=== PATIENT | male | born 1985 | race Caucasian/White ===

== ENCOUNTER 2023-03-05 09:03 | Outpatient (OUT) | payer BC, SELFPAY ==
--- NOTE | 2023-03-05 09:05 | VEIN_ITS ---
The [address] [address] Patient Name: HAMIDA MUNIZ MRN: [id number] date: 1985 Sex: M Assigned Patient Location: Current Patient Location: Accession/Order Number: [id number] Exam Date: 03/05/2023 09:10 Report Date: 03/05/2023 10:56 At the request of: KEMAR WILLIS Procedure: VC Endovenous Ablation 1VeinLT EXAMINATION: VC Endovenous Ablation 1VeinLT HISTORY: I83.813 Pain due to varicose veins of bilateral leg veins The risks and benefits of the procedure had been previously discussed, and were rediscussed at length. Informed written consent was obtained. Truman Gan RN and Yuridia Rod RDMS, RVT assisted. Time out procedure was performed. The left lower extremity was prepared and draped in the usual sterile fashion to allow knee flexion in the sterile field. Duplex ultrasound probe was draped in a sterile cover, sterile transmission gel was used. Venous mapping was performed with the areas of dilation and large tributaries marked. The total length was 70 cm from the entry 3 cm above the medial malleolus to 3 cm below the saphenofemoral junction. The diameter of the greater saphenous vein ranged from 10.7 mm. A 30 gauge needle and 1% buffered lidocaine was used to anesthetize the entry site. A 4 mm incision was made with a scalpel and the saphenous vein was entered percutaneously under direct ultrasound guidance with a micropuncture set, a single stick was successful in gaining access. A micro-guide wire was inserted and the needle removed. A micro-set including a dilator was inserted over the microwire and the needle and dilator were removed. A guide wire was inserted through the micro-set and guided through the saphenous vein to the saphenofemoral junction. The dilator was removed and an introducer sheath was inserted over the wire until the end of the sheath entered the saphenofemoral junction. The dilator and wire were removed and the 600 micron fiber was introduced and placed and positioned so that it extended beyond the sheath and was 3 cm distal to the saphenofemoral femoral junction. Final position of the fiber was determined by ultrasound guidance and duplex imaging. Tumescent anesthetic was delivered by ultrasound guidance. 375 cc of fluid was delivered along the entire course of the saphenous vein. The solution consisted of 1000 cc of normal saline with 40 mL of 1% lidocaine and 20 mL of sodium bicarbonate. A final positioning check was made. The energy source was turned on by means of the foot pedal and the fiber and sheath were withdrawn. The total number of Joules delivered was 3785. The laser was active for 473seconds under continuous pulse, average laser use of 8 J. Laser start time 10:15 AM, 03/05/2023. Laser stop time 10:25 AM, 03/05/2023. A duplex ultrasound revealed compressibility and flow at the saphenofemoral junction immediately after the procedure. Hemostasis at the access site was achieved. The skin incision of the saphenous vein was closed with a 4 x 4. A compression stocking was applied. Postop instructions were given. A follow up appointment was recommended and scheduled. The patient tolerated the procedure well. Electronically authenticated by: MADAN RASHEED Date: 03/05/2023 10:56
[2023-03-05] MEDS: LIDOCAINE HCL 10 ML, SODIUM BICARBONATE 1 MEQ INJ (13:36)
[2023-03-05] MEDS: 0.9 % SODIUM CHLORIDE 500 ML, LIDOCAINE HCL 20 ML, SODIUM BICARBONATE 10 MEQ INJ (13:37)
== END 2023-03-05 09:04 | disposition home or self-care (01) ==
LOC: VC 09:03
PROVIDERS: PCP Radiology Diagnostic Radiology; Visit Provider Radiology Diagnostic Radiology
DX: I83.813 Varicose veins of bilateral lower extremities with pain (principal)
CPT/HCPCS: 36478

== ENCOUNTER 2023-03-12 08:04 | Outpatient (OUT) | payer BC, SELFPAY ==
--- NOTE | 2023-03-12 08:06 | VEIN_ITS ---
Patient: HAMIDA MUNIZ Exam Date: 03/12/2023 : 1985 Gender:M Ordering : DR KEMAR WILLIS M.D. Admission #: [id number] Family : Order #: [id number] CLICK HERE TO VIEW EXAM RADIOLOGY REPORT PROCEDURE: VC EXT VENOUS LT LIMITED COMPARISON: None. INDICATIONS: I80.02 Phlebitis of superficial veins of left lower extremity TECHNIQUE: Lower extremity bishop scale and Duplex Doppler evaluation of the deep venous system from the inguinal ligament through the calf veins. FINDINGS: REGION: Left lower extremity. THROMBI: Negative for DVT. Heat induced thrombus in left GSV 2.1 cm from SFJ and extends to mid calf. Associated varicosity also partially thrombosed in mid thigh. COMPRESSIBILITY: Non-compressible segments. FLOW: Areas of no flow. OTHER: Multiple varicosities remain. CONCLUSION: Successful post ablation occlusion left great saphenous vein. Dictated by: Bg Villar M.D. on 03/12/2023 at 08:37 Approved by: Bg Villra M.D. on 03/12/2023 at 08:38
--- NOTE | 2023-03-12 08:06 | VEIN_ITS ---
Patient: HAMIDA MUNIZ Exam Date: 03/12/2023 : 1985 Gender:M Ordering : DR KEMAR WILLIS M.D. Admission #: [id number] Family : Order #: [id number] CLICK HERE TO VIEW EXAM RADIOLOGY REPORT PROCEDURE: FACILITY EST L[facility]D VEIN CENTER - OFFICE VISIT FOLLOW UP COMPARISON: None. PROGRESS NOTES: The patient reports improvement in leg symptoms. There has been interval reduction in varicosities. The patient has followed our recommendations to walk 20-30 minutes once or twice per day since the procedure. Physical exam demonstrates decrease in varicosities of the leg. Persistent varicosities are identified along the legs bilaterally. Review of the ultrasound performed the same day demonstrates occlusive thrombus extending throughout the treated vein(s), see separate report, consistent with a successful ablation. No thrombus extending into or beyond the saphenofemoral junction. The patient expressed a desire to proceed with treatment of remaining incompetent varicosities. The patient was informed that treatment was a process and would require several procedures/sessions. VEIN/ Facility EST LMTD IMPRESSION: 1. Successful ablation of the left great saphenous vein(s). 2. Persistent incompetent, dilated varicose veins and bilateral lower extremity symptoms. PLAN: Endovenous laser ablation of right great saphenous vein. Nurse notes, history and physical were reviewed and confirmed, see attached forms. The nurse was present throughout the physical exam and consultation Dictated by: Bg Villar M.D. on 03/12/2023 at 08:38 Approved by: Bg Villar M.D. on 03/12/2023 at 08:39
== END 2023-03-12 08:05 | disposition home or self-care (01) ==
LOC: VC 08:05
PROVIDERS: PCP Radiology Diagnostic Radiology; Visit Provider Radiology Diagnostic Radiology
DX: I80.02 Phlebitis and thrombophlebitis of superficial vessels of left lower extremity (principal)
CPT/HCPCS: 93971; G0463

== ENCOUNTER 2023-07-17 07:23 | Outpatient (OUT) | payer BC, SELFPAY ==
--- NOTE | 2023-07-17 07:56 | VEIN_ITS ---
[address] [address] Patient Name: HAMIDA MUNIZ MRN: [id number] date: 1985 Sex: M Assigned Patient Location: Current Patient Location: Accession/Order Number: [id number] Exam Date: 07/17/2023 07:40 Report Date: 07/17/2023 10:42 At the request of: KEMAR WILLIS Procedure: VC Endovenous Ablation 1VeinLT EXAMINATION: VC Endovenous Ablation 1VeinLT anterior accessory saphenous vein HISTORY: Pain due to varicose veins of bilateral legs I83.813 COMPARISON: No relevant comparison available. TECHNIQUE: The risks and benefits of the procedure had been previously discussed, and were rediscussed at length. Informed written consent was obtained. Awa Rod and Truman Gan assisted. Time out procedure was performed. The left lower extremity was prepared and draped in the usual sterile fashion to allow knee flexion in the sterile field. Duplex ultrasound probe was draped in a sterile cover, sterile transmission gel was used. Venous mapping was performed with the areas of dilation and large tributaries marked. The total length was 19 cm from the entry distal thigh to 3 cm below the saphenofemoral junction. The diameter of the left anterior accessory saphenous vein ranged from 4-7 mm. A 30 gauge needle and 1% buffered lidocaine was used to anesthetize the entry site. A 4 mm incision was made with a scalpel and the saphenous vein was entered percutaneously under direct ultrasound guidance with a micropuncture set, a single stick was successful in gaining access. A micro-guide wire was inserted and the needle removed. A micro-set including a dilator was inserted over the microwire and the needle and dilator were removed. A 0.018 guide wire was inserted through the micro-set and threaded through the saphenous vein to the saphenofemoral junction. The dilator was removed and an introducer sheath was inserted over the wire until the end of the sheath entered the saphenofemoral junction. The dilator and wire were removed and the 600 micron fiber was introduced and placed and positioned so that it extended beyond the sheath and was 3 cm peripheral to the saphenofemoral femoral junction. Final position of the fiber was determined by ultrasound guidance and duplex imaging. Tumescent anesthetic was delivered by ultrasound guidance. 100 cc of fluid was delivered along the entire course of the saphenous vein. The solution consisted of 1000 cc of normal saline with 40 mL of 1% lidocaine and 20 mL of sodium bicarbonate. A final positioning check was made. The energy source was turned on by means of the foot pedal and the fiber and sheath were withdrawn. The total number of Joules delivered was 879. The laser was active for 110 seconds under continuous pulse, average laser use of 8 J. Laser start time 8:23 AM 07/17/2023. . Laser stop time 8:25 AM 07/17/2023 . A duplex ultrasound revealed compressibility and flow at the saphenofemoral junction immediately after the procedure. Hemostasis at the access site was achieved. The skin incision of the saphenous vein was closed with a 4 x 4. A compression stocking was applied. Postop instructions were given. A follow up appointment was recommended and scheduled. The patient tolerated the procedure well and was discharged in good condition . VEIN/VC Endovenous Ablation 1VeinLT IMPRESSION: Technically successful endovenous laser ablation left anterior accessory saphenous vein Electronically authenticated by: KEMAR WILLIS Date: 07/17/2023 10:42
[2023-07-17] MEDS: 0.9 % SODIUM CHLORIDE 500 ML, LIDOCAINE HCL 20 ML, SODIUM BICARBONATE 10 MEQ INJ (08:11)
[2023-07-17] MEDS: LIDOCAINE HCL 1% 100 MG/10 ML MDV INJ (08:12)
== END 2023-07-17 07:24 | disposition home or self-care (01) ==
LOC: VC 07:39
PROVIDERS: PCP Radiology Diagnostic Radiology; Visit Provider Radiology Diagnostic Radiology
DX: I83.813 Varicose veins of bilateral lower extremities with pain (principal)
CPT/HCPCS: 36478

== ENCOUNTER 2023-07-25 07:31 | Outpatient (OUT) | payer BC, SELFPAY ==
--- NOTE | 2023-07-25 | VEIN_ITS ---
Patient Name: HAMIDA MUNIZ MR#: [id number] : 1985 Exam Date: 07/25/2023 Ordering Doctor: DR KEMAR WILLIS M.D. RADIOLOGY REPORT PROCEDURE: [facility] EST [facility] VEIN CENTER - OFFICE VISIT FOLLOW UP [facility] PROGRESS NOTES: The patient reports improvement in leg symptoms. There has been interval reduction in varicosities. The patient has followed our recommendations to walk 20-30 minutes once or twice per day since the procedure. Physical exam demonstrates decrease in varicosities of the leg. Persistent varicosities are identified along the left leg. Review of the ultrasound performed the same day demonstrates occlusive thrombus extending throughout the treated vein(s), see separate report, consistent with a successful ablation. No thrombus extending into or beyond the saphenofemoral junction. The patient expressed a desire to proceed with treatment of incompetent branch saphenous varicosities. The patient was informed that treatment was a process and would require 1 procedures/sessions. VEIN/[facility] EST TD IMPRESSION: 1. Successful ablation of the left anterior accessory saphenous vein(s). 2. Persistent superficial varicose veins and left leg symptoms. PLAN: 1. Microfoam chemical ablation of remaining left leg incompetent branch saphenous varicosities. Nurse notes, history and physical were reviewed and confirmed, see attached forms. The nurse was present throughout the physical exam and consultation Dictated by: Bg Villar M.D. on 07/25/2023 at 08:10 Approved by: Bg Villar M.D. on 07/25/2023 at 08:37
--- NOTE | 2023-07-25 | VEIN_ITS ---
Patient Name: HAMIDA MUNIZ MR#: [id number] : 1985 Exam Date: 07/25/2023 Ordering Doctor: DR KEMAR WILLIS M.D. RADIOLOGY REPORT PROCEDURE: VC EXT VENOUS LT LIMITED COMPARISON: VC EXT VENOUS LT LIMITED, 03/12/2023. INDICATIONS: Phlebitis of superficial veins of lt lower extremity I80.02 TECHNIQUE: Lower extremity bishop scale and Duplex Doppler evaluation of the deep venous system from the inguinal ligament through the calf veins. FINDINGS: REGION: Left lower extremity. THROMBI: Negative for DVT. Heat induced thrombus visualized 1.8cm from the SFJ. The heat induced thrombus extends from groin to mid thigh. COMPRESSIBILITY: Non-compressible segments corresponding to thrombus FLOW: Areas of no flow corresponding to thrombus OTHER: CONCLUSION: 1. Successful post ablation occlusion of left anterior accessory saphenous vein. Dictated by: Bg Villar M.D. on 07/25/2023 at 08:10 Approved by: Bg Villar M.D. on 07/25/2023 at 08:10
== END 2023-07-25 07:32 | disposition home or self-care (01) ==
LOC: VC 07:31
PROVIDERS: PCP Radiology Diagnostic Radiology; Visit Provider Radiology Diagnostic Radiology
DX: I80.02 Phlebitis and thrombophlebitis of superficial vessels of left lower extremity (principal)
CPT/HCPCS: 93971; G0463

== ENCOUNTER 2023-07-26 07:32 | Outpatient (OUT) | payer BC, SELFPAY ==
--- NOTE | 2023-07-26 07:34 | VEIN_ITS ---
[address] [address] Patient Name: HAMIDA MUNIZ MRN: [id number] date: 1985 Sex: M Assigned Patient Location: Current Patient Location: Accession/Order Number: [id number] Exam Date: 07/26/2023 07:40 Report Date: 07/26/2023 08:47 At the request of: KEMAR WILLIS Procedure: VC INJ Foam Sclerosant WUS BOARD STACKER PROCEDURE: VC INJ Foam Sclerosant WUS BOARD STACKER HISTORY: Pain due to varicose veins of bilateral legs I83.813 Pre-operative Diagnosis: CEAP class C3 venous insufficiency with pain, tenderness, edema and incompetent branch saphenous vein(s), chronic venous insufficiency left leg secondary to venous incompetence Post-operative Diagnosis: CEAP class C3 venous insufficiency with pain, tenderness, edema and incompetent branch saphenous vein(s), chronic venous insufficiency left leg secondary to venous incompetence Procedure Performed: 1. Ultrasound-guided microfoam chemical ablation with Varithenaregistered 2. Intraoperative ultrasound guidance Physician: Bg Villar M.D. Anesthesia: None Indications for Procedure: 38 year old male. Symptoms including lower extremity pain, swelling, dilated bulging veins for many years despite conservative medical therapy including medical compression stockings, exercise and analgesics. Prior procedures include endovenous laser ablation. Multiple incompetent varicosities of the left leg. Duplex scan showed reflux and enlarged diameters up to 4 mm. The patient underwent informed consent including management options where the complications of infection, bleeding, pain, and skin injury were discussed. Particular attention was spent discussing thrombus extension and deep vein thrombosis as well as the possibility of pulmonary embolus and treatment with oral or injectable blood thinners. Procedure: The patient walked to the procedure room. All applicable staff donned appropriate apparel. A procedure timeout was performed to confirm correct patient, correct extremity, correct procedure, and correct room set-up including presence of all applicable supplies, devices, and drugs. A duplex ultrasound, performed by myself confirmed the location and incompetence of branch saphenous varicosities and their course was marked on the skin together with the dilated tributaries. The extent of treatment of the vein and the associated varicosities was determined through ultrasound mapping. The skin was prepped and then punctured with a butterfly needle and advanced under ultrasound guidance. The Varithenaregistered canister was activated and the canister was primed and purged as required in the instructions for use. Varithenaregistered was drawn into a sterile syringe. Varithenaregistered was slowly administered at 0.5-1.0 cc/second with close observation by ultrasound of its course in the vessels. Total volume utilized was: 15 mL (5 mL into a 4 mm varicosity distal anterior lower leg; 5 mL into a 4 mm varicosity distal medial lower leg; 5 mL into a 3 mm varicosity mid medial lower leg). Following administration of Varithenaregistered the leg was elevated and the patient was asked to repeatedly dorsiflex the ankle to limit flow of Varithenaregistered into perforating veins. Once appropriate spasm had been confirmed in the treated veins, the vascular catheter was removed from the leg and light pressure was applied over the puncture site for hemostasis. The common femoral and deep superficial veins were then evaluated for flow and compressibility prior to dressing placement. The lower extremity was kept elevated at 45 degrees above the horizontal and cording material was applied over the saphenous segments and tributaries to allow for eccentric compression over the target vessels including the targeted saphenous vein(s). A multilayer dressing was applied consisting of foam pads, coban and thigh-high 20-30 mm Hg compression elastic support hose were placed on the patient. The leg was lowered only after compression had been applied and the patient was immediately ambulatory. The patient ambulated 10 minutes under supervision and was without apparent concerns at time of release. Post-care instructions include advising patient to keep post-treatment bandages in place and dry for 48 hours, avoid extended periods of inactivity, avoid heavy exercise for one week, wear compression stockings on the treated leg continuously for two weeks, to walk daily for 10 minutes over the next month. The patient was instructed to take an anti-inflammatory medicine as needed and to follow up for color duplex scan of the Saphenous veins, the treated branch saphenous varicosities, the adjacent deep veins, and additional treatment within 7 days. PERSONNEL: Jackie Peterson RN Electronically authenticated by: BG VILLAR Date: 07/26/2023 08:47
--- OUTSIDE RECORDS SUMMARY | 2023-07-26 07:35 | XMS_ITS | CCD ---
Author Name Unknown Address [address] [place] [address] Organization [facility] Care Team Providers Care Automobile Glass Technician Name Role Phone ALBA, DR KEMAR Merino Consulting Unavailable ALBA, DR KEMAR Merino Attending Unavailable ALBA, DR KEMAR Merino Admitting Unavailable WEST, DR KEMAR Merino Admitting Unavailable WEST, DR KEMAR Merino Consulting Unavailable ALBA, DR KEMAR Merino Attending Unavailable WEST, DR KEMAR Merino Consulting Unavailable WEST, DR KEMAR Merino Attending Unavailable WEST, DR KEMAR Merino Admitting Unavailable WEST, DR KEMAR Merino Consulting Unavailable WEST, DR KEMAR Merino Attending Unavailable ALBA, DR KEMAR Merino Admitting Unavailable Problems Problem Classification Problem Date Documented Da te Episodic/Chronic Varicose veins of lower extremity (4 sources) Varicose veins of bilateral lower extremities with pain; Translations: [VARICOSE VNS ERIKA LOW EXTREM W/PAIN] Onset: 11-01-2022 Episodic Results Test Name Value Interpretation Reference Range Facil ity VC COMP CONSULTATIONon 11-01 VC COMP CONSULTATION Patient: HAMIDA MUNIZ Exam Date: 11/01/2022 : 1985 Gender:M Ordering : DR KEMAR PITTMAN M.D. Admission #: [id number] Family : Order #: [id number] CLICK HERE TO VIEW EXAM RADIOLOGY REPORT PROCEDURE: VC VEIN CENTER CONSULTATION VEIN CENTER - OFFICE VISIT INITIAL COMPARISON: None. PROGRESS NOTES: 36 year old male who presents with a 15 year history of lower extremity pain swelling and varicose veins. The patient complains subcutaneous edema. The patient rates the pain as a 6 on a scale of 1-10 the left side being significantly worse than the right. The patient describes the pain as aching burning and heaviness with occasional stinging. Patient's symptoms are significantly exacerbated by prolonged sitting and standing and are partially relieved by rest, leg elevation and compression stockings which she has worn for two years. The patient does take ibuprofen over the counter for the pain. 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 The patient does run 5 days per week and also participates in weight training approximately 5 days per week. The patient denies any signs and symptoms to suggest arterial ischemia. The patient describes a family history of varicose veins in his father and maternal grandmother. Obesity and mother and brother. Hypertension in his mother. Occasional social alcohol use. No illicit drug use. The patient has never smoked. No prescription drugs. No past surgical history. No history of deep venous thrombus or pulmonary embolus. See separate history and physical for medication list. No prior treatment for varicose or spider veins. Nursing notes were reviewed. After history and physical exam I discussed at length the pathophysiology of venous hypertension and possible treatments, therapies and strategies available. We discussed at length the importance of elevating the lower extremities above the level of the heart, increased physical activity and compression stocking use. Ultrasound venous reflux study performed the same day was discussed at length with the patient. The report demonstrates moderate bilateral great saphenous vein venous insufficiency. Moderate bilateral deep vein reflux. Moderate left anterior accessory saphenous vein reflux. Bilateral incompetent varicose veins. PHYSICAL EXAM: The right leg demonstrates mild to moderate diffuse varicose and reticular veins. No active ulceration. Mild subcutaneous edema ankle and foot. No skin discoloration. The left leg demonstrates moderate diffuse varicose and mild reticular veins. No active ulceration. Mild subcutaneous edema ankle and foot. No skin discoloration. Both thighs, legs and feet were symmetrically warm to the touch. Good posterior tibial and dorsalis pedis pulses were present bilaterally. IMPRESSION: 1. Bilateral great saphenous vein, left anterior accessory saphenous vein venous insufficiency with dilatation 2. Moderate bilateral lower extremity varicose veins 3. Mild bilateral lower extremity subcutaneous edema 4. No significant flow significant arterial disease 5. CEAP: C3, Ep, Asp, Pr PLAN: 1. Endovenous laser ablation left great saphenous vein followed by right great saphenous vein followed by left anterior accessory saphenous vein 2. Bilateral micro foam chemical ablation incompetent varicose veins 3. Long-term use of bilateral thigh-high 20-30 mm compression stockings 4. Elevated legs and continued physical activity for symptomatic relief Nurse notes, history and physical were reviewed and confirmed, see attached forms. The nurse was present throughout the physical exam and consultation Dictated by: Kemar Pittman MD on 11/01/2022 at 10:53 Approved by: Kemar Pittman MD on 11/01/2022 at 11:20 Normal [facility] VC VENOUS REFLUX ERIKA LMTon 0 11-01-2022 VC VENOUS REFLUX ERIKA LMT Patient: HAMIDA MUNIZ Exam Date: 11/01/2022 : 1985 Gender:M Ordering : DR KEMAR PITTMAN M.D. Admission #: [id number] Family : Order #: [id number] CLICK HERE TO VIEW EXAM RADIOLOGY REPORT PROCEDURE: VEIN CENTER ULTRASOUND VENOUS REFLUX BILATERAL LIMTED COMPARISON: None. INDICATIONS: Pain co-occurrent and due to varicose veins of bilateral legs I83.813 TECHNIQUE: Duplex imaging of the lower extremity to assess the deep and superficial venous system for the presence of deep or superficial venous incompetence and to document the location and severity of disease. The study includes evaluation of the great saphenous vein (GSV), anterior accessory saphenous vein (AASV) and small saphenous vein (SSV). Patient scanned in reverse Trendelenburg and standing. FINDINGS: RIGHT LOWER EXTREMITY: Saphenofemoral Junction Reflux: Yes 9.2mm 1.1 sec GSV: Diam (mm) Reflux/ Time (sec) Proximal Thigh 7.3 Yes 1.3 Mid Thigh 6.6 Yes 0.8 Distal Thigh 6.3 Yes 0.2 Prox Calf 5.1 Yes 0.2 Mid Calf 4.8 Yes 1.9 Saphenopopliteal Junction Reflux: 6.4mm Yes 1.3 SSV: Proximal Calf 5.5 Yes 0.5 Mid Calf 4.7 Yes 0.9 AASV: Not present Thrombi: No acute or chronic thrombus. Compressibility: Normal. Flow: Deep venous reflux. Preforator: Dist/med lower leg 5.2 mm with 4.7s reflux. Prox med lower leg 4.2 mm, 2.5s reflux. Tech Note: Incompetent varicose vein proximal medial lower leg measures 4.7 mm with 0.8s reflux. Varicosity mid medial thigh measures 6.1 mm with 0.8s reflux. LEFT LOWER EXTREMITY: Saphenofemoral Junction Reflux: Yes 10.8 mm 3.6 sec GSV: Diam (mm) Reflux/Time (sec) Proximal Thigh 10.7 Yes 1.3 Mid Thigh 6.5 Yes 0.9 Distal Thigh 6.5 Yes 0.9 Prox Calf 8.1 Yes 2.7 Mid Calf 7.4 Yes 2.4 Saphenopopliteal Junction Relux: 5.7 mm Yes 0.3 SSV: Proximal Calf 4.6 Yes 0.2 Mid Calf 4.7 Yes 0.5 AASV: Proximal Thigh 6.2 Yes 2.0 Mid Thigh 3.7 Yes 0.6 Distal Thigh Thrombi: No acute or chronic thrombus. Compressibility: Normal. Flow: Deep venous reflux. Duty Manager: Medial distal lower leg measures 3.3 mm with 4.8s reflux. Med prox lower leg measures 6.8 mm with 4.3s reflux. Tech Note: Incompetent varicose vein mid medial lower leg measures 4.0 mm with 0.6s reflux. Varicose vein medial distal thigh measures 4.7 mm with 0.5s reflux. Medial anterior/distal lower leg varicosity measures 4.9mm with 1.6s reflux. CONCLUSION: 1. Moderate bilateral great saphenous vein venous insufficiency with associated dilatation 2. Mild right small saphenous vein venous insufficiency 3. Moderate right anterior accessory saphenous vein venous insufficiency with dilatation 4. Moderate bilateral incompetent varicose veins Dictated by: Kemar Pittman MD on 11/01/2022 at 10:12 Approved by: Kemar Pittman MD on 11/01/2022 at 10:23 Normal [facility] Encounters Encounter Date Encounter Type Care Provider Facility Start: 11-01-2022 End: 11-02-[address] KEMAR PITTMAN Facility:[facility] Start: 10-10-[address] KEMAR PITTMAN Facilit y:[facility] Start: 01-12-2022 End: 01-13-[address] KEMAR PITTMAN Facility:[facility] Start: 12-22-2021 End: 04-02-[address] KEMAR PITTMAN Facility:[facility] Payers Date Payer Category Payer Unknown [id number] [id number] [id number] 1985 Unknown [id number] 2.16.84 [id number] 1985 Unknown [id number] 2.16.84 [id number] 1985 Unknown [id number] 2.16.84 [id number] 1959 Self-pay 1959 Unknown [id number] Summary Purpose Family History No Family History Records Found Advance Directives No Advanced Directives Records Found Additional Source Comments (unrecognized sect ion and content) No Status Records Found INFORMATION SOURCE (unrecogn ized section and content) DATE CREATED AUTHOR 11/11/2022 [facility] FOR RECORDS PERTAINING TO PATIENTS WHO ARE OR HAVE BEEN ENROLLED IN A CHEMICAL DEPENDENCY/SUBSTANCEABUSE PROGRAM, SOME INFORMATION MAY BE OMITTED. This clinical summary was aggregated from multiple sources. Caution should be exercised in using it in the provision of clinical care. This summary normalizes information from multiple sources, and as a consequence, information in this document may materially change the coding, format and clinical context of patient data. In addition, data may be omitted in some cases. CLINICAL DECISIONS SHOULD BE BASED ON THE PRIMARY CLINICAL RECORDS. [facility]. provides no warranty or guarantee of the accuracy or completeness of information in this document.
== END 2023-07-26 07:33 | disposition home or self-care (01) ==
LOC: VC 07:32
PROVIDERS: PCP Radiology Diagnostic Radiology; Visit Provider Radiology Diagnostic Radiology
DX: I83.813 Varicose veins of bilateral lower extremities with pain (principal)
CPT/HCPCS: 36466

== ENCOUNTER 2023-08-02 09:04 | Outpatient (OUT) | payer BC, SELFPAY ==
--- NOTE | 2023-08-02 09:08 | VEIN_ITS ---
Patient Name: HAMIDA MUNIZ MR#: [id number] : 1985 Exam Date: 08/02/2023 Ordering Doctor: DR CEDRIC PITTMAN M.D. RADIOLOGY REPORT PROCEDURE: FACILITY EST LMTD VEIN CENTER - OFFICE VISIT FOLLOW UP COMPARISON: [facility] EST LMTD, 07/25/2023. [facility] EST LMTD, 03/12/2023. PROGRESS NOTES: The patient reports mild swelling and discomfort following intravenous laser ablation of the left leg incompetent varicose veins. The patient did not require oral analgesics. The patient has worn his compression stocking. The patient has exercised daily since the procedure. Physical exam demonstrates some mild swelling of the left distal leg and ankle. Multiple thrombosed varicose veins can be palpated. Mild warmth in the area of the thrombus veins suggest mild thrombophlebitis. No active ulceration. The patient was encouraged to wear his compression stocking and use over the counter ibuprofen or Tylenol if necessary. Review of the ultrasound performed the same day demonstrates occlusive thrombus extending throughout the treated left leg incompetent varicose veins. No significant varicose veins remain. The patient's treatment is now complete. I suggested a 12-24 months follow-up. VEIN/[facility] EST LMTD IMPRESSION: 1. Successful ablation of treated left leg varicose veins 2. Treatment plan is complete. PLAN: Follow-up in 12-24 months Nurse notes, history and physical were reviewed and confirmed, see attached forms. The nurse was present throughout the physical exam and consultation Dictated by: Cedric Pittman MD on 08/02/2023 at 09:29 Approved by: Cedric Pittman MD on 08/02/2023 at 09:31
--- NOTE | 2023-08-02 09:08 | VEIN_ITS ---
Patient Name: HAMIDA MUNIZ MR#: [id number] : 1985 Exam Date: 08/02/2023 Ordering Doctor: DR CEDRIC PITTMAN M.D. RADIOLOGY REPORT PROCEDURE: VC EXT VENOUS LT LIMITED COMPARISON: VC EXT VENOUS LT LIMITED, 07/25/2023. VC EXT VENOUS LT LIMITED, 03/12/2023. INDICATIONS: Phlebitis of superficial vein of lt lower extremity I80.02 TECHNIQUE: Lower extremity bishop scale and Duplex Doppler evaluation of the deep venous system from the inguinal ligament through the calf veins. FINDINGS: REGION: Left lower extremity. THROMBI: Negative for DVT. Varithena induced thrombus visualized at mid/med calf and dist/med calf. COMPRESSIBILITY: Non-compressible segments corresponding to thrombus FLOW: Areas of no flow corresponding to thrombus OTHER: No patent varicose veins remain. CONCLUSION: Post ablation occlusion of treated left leg varicose veins Dictated by: Cedric Pittman MD on 08/02/2023 at 09:20 Approved by: Cedric Pittman MD on 08/02/2023 at 09:21
--- OUTSIDE RECORDS SUMMARY | 2023-08-02 09:15 | XMS_ITS | CCD ---
Author Name Unknown Address [address] [facility] [address] [place] [address] Organization [facility] Care Team Providers Care Human Resources Operations Specialist Name Role Phone ALBA, DR KEMAR Merino [...] : DR KEMAR PITTMAN M.D. Admission #: [id number] Family : Order #: [id number] CLICK HERE TO VIEW EXAM RADIOLOGY REPORT [...] MD on 11/01/2022 at 11:20 Normal [facility] VC VENOUS REFLUX ERIKA LMTon 0 11-01-2022 VC VENOUS REFLUX ERIKA LMT Patient: HAMIDA MUNIZ Exam Date: 11/01/2022 : 1985 Gender:M Ordering : DR KEMAR PITTMAN M.D. Admission #: [id number] Family : Order #: [id number] CLICK HERE TO VIEW EXAM RADIOLOGY REPORT [...] thrombus. Compressibility: Normal. Flow: Deep venous reflux. Tag Maker: Medial distal lower leg measures 3.3 mm [...] Pittman MD on 11/01/2022 at 10:23 Normal [facility] Encounters Encounter Date Encounter Type Care Provider Facility Start: 11-01-2022 End: 11-02-[address] KEMAR PITTMAN Facility:[facility] Start: 10-10-[address] KEMAR PITTMAN Facilit y:[facility] Start: 01-12-2022 End: 01-13-[address] KEMAR PITTMAN Facility:[facility] Start: 12-22-2021 End: 04-02-[address] KEMAR PITTMAN Facility:[facility] Payers Date Payer Category Payer Unknown [id number] 2.16.84 [id number] 1985 Unknown [id number] 2.16.84 [id number] 1985 Unknown [id number] 2.16.84 [id number] 1985 Unknown [id number] 2.16.84 [id number] 1959 Self-pay 1959 Unknown [id number] Summary Purpose Family History No Family History Records Found Advance Directives No Advanced Directives Records Found Additional Source Comments (unrecognized sect ion and content) No Status Records Found INFORMATION SOURCE (unrecogn ized section and content) DATE CREATED AUTHOR 11/11/2022 [facility] FOR RECORDS PERTAINING TO PATIENTS WHO [...] BE BASED ON THE PRIMARY CLINICAL RECORDS. [facility]. provides no warranty or guarantee of the accuracy or completeness of information in this document.
== END 2023-08-02 09:05 | disposition home or self-care (01) ==
LOC: VC 09:04
PROVIDERS: PCP Radiology Diagnostic Radiology; Visit Provider Radiology Diagnostic Radiology
DX: I80.02 Phlebitis and thrombophlebitis of superficial vessels of left lower extremity (principal)
CPT/HCPCS: 93971; G0463